=== PATIENT | male | born 1975 | race African-American/Black ===

== ENCOUNTER 2020-07-18 08:00 | Outpatient (RCR) | payer OTHER, SELFPAY ==
--- NOTE | 2020-06-27 10:42 | PTOPEVAL ---
Thank you for referring Abraham Guaman to [facility].? The patient is scheduled to be seen for therapy? 2x/week for 3 weeks. Please review, sign, date and return this plan of care MAXX. I agree with and certify that the following plan of care is medically necessary. Referring Physician Date Attending Provider: Myrna Rojo, Referring Provider: *PT Outpatient Evaluation Start: 06/27/20 09:54 Freq: Status: Active Protocol: Document 06/27/20 09:53 JESSICA (Rec: 06/27/20 10:27 JESSICA [id number]) Therapy Assessment Status Assessment Status Assessment Status Evaluation Outpatient Past Medical History Past Medical History Source of Past Medical History Patient,Recalled from Previous Visit, Confirmed with Patient /Family Neurological History Hx Neurological Disorders No Significant History Cardiovascular History Hx Congenital Heart Disease Yes Hx Heart Murmur Yes Hx Hypercholesterolemia Yes Hx Hypertension Yes Hx Other Cardiac Disorders Yes: heart cath 10/07/19 Respiratory History Hx Respiratory Disorders No Significant History Gastrointestinal History Hx Gastrointestinal Disorders No Significant History Musculoskeletal History Hx Back Pain Yes Endocrine History Hx Diabetes Yes: medication Hx Other Endocrine Disorders Yes: BMI 56 Evaluation Information Problem Diagnosis acute left side pain Onset around May 31 Cause unknown Additional Evaluation Detail He was given muscle relaxors at the ED/Urgent care on with good relief of symptoms. 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 Subjective Information He bought a new bed due to he Query Text:As Reported By Patient/ thought his back pain was due Family to his bed. He continued to have back pain with the new bed. He uses a heating pad and ice for the pain. In addition taking muscle relaxors. He walks 3 miles 3-4x/wk. He had increased pain due to a tweek in his back with the walking. Denies pain with ADL' s, bending or carrying objects . Denies radiating symptoms into LE. Increased pain with prolonged standing, prolonged
--- NOTE | 2020-07-18 08:40 | PTOPEVAL ---
Thank you for referring Abraham Guaman III to [facility] [place].? Abraham has been seen for 7 therapy visits to address his back pain. He is able to perform daily activities, walking program and IADL's without increased pain. He is indep with his HEP. He has reached maximal potential with skilled therapy services. DC skilled therapy at this time. Please review, sign, date and return this plan of care MAXX. I agree with and certify that the following plan of care is medically necessary. Referring Physician Date Admitting Provider: Attending Provider: Myrna Rojo, Referring Provider: *PT Outpatient Evaluation Start: 06/27/20 09:54 Freq: Status: Active Protocol: Document 07/18/20 08:02 JESSICA (Rec: 07/18/20 08:37 [facility] [id number]) Therapy Assessment Status Assessment Status Assessment Status Re-evaluation/Discharge Note Evaluation Information Problem Diagnosis acute left side pain Onset around May 31 Cause unknown Additional Evaluation Detail He was given muscle relaxors at the ED/Urgent care on with good relief of symptoms. 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 Subjective Information He cont to feel the new bed Query Text:As Reported By Patient/ has improved his back pain. He Family is no longer using a heating pad or ice for the pain due to decreased intensity and frequency. He walks 3 miles 3-4x/wk. He at time has increased pain with longer distance, but not consistent. Denies pain with ADL's, bending or carrying objects. Denies radiating symptoms into LE. Denies any pain with prolonged standing or sitting. Pain Assessment Timing of Pain Assessment Timing of Pain Assessment Re-assessment Pain Scale Pain Scale Used Numeric (1 - 10) Self Report Pain Assessment Left Lower Medial Back Reported Pain Level 1 Pain Frequency Intermittent Lowest Pain Intensity 0 Greatest Pain Intensity 5 Pain Score Pain Score 1: Self Report Cervical and Lumbar ROM Lumbar ROM Lumbar Flexion Active Floor Query Text:Hands to: Lumbar Comments 100% of trunk flex 100% trunk ext, rotation and lateral flex
== END 2020-07-18 12:32 | disposition home or self-care (01) ==
LOC: ANHPT 08:00
PROVIDERS: PCP Family Medicine; Visit Provider Family Medicine
DX: M54.5 Low back pain (principal)
CPT/HCPCS: 97110; 97140; 97161